=== PATIENT | male | born 2000 | race Two or more races ===

== ENCOUNTER 2022-03-16 08:51 | Emergency (ER) | payer OTHER ==
[~2022-03-16] VITALS: Ht 180.3 cm; Wt 83.0 kg
[2022-03-16 09:13] VITALS: BP 120/88
[2022-03-16] MEDS ORDERED: KETOROLAC TROMETH 60MG/2ML VIAL IM ONE (09:30)
[2022-03-16] MEDS ORDERED: IBUP800T27 PO (11:42)
== END 2022-03-16 11:48 | disposition home or self-care (01) ==
LOC: ER 08:51
DX: M94.0 Chondrocostal junction syndrome [Tietze] (principal); Z20.822 Contact with and (suspected) exposure to COVID-19
CPT/HCPCS: 36415; 71046; 87426; 87804; 96372; 99284; J1885

== ENCOUNTER 2023-04-23 00:31 | Emergency (ER) | payer OTHER ==
[~2023-04-23] VITALS: Ht 180.3 cm; Wt 100.0 kg
[~2023-04-23 00:31] MED LIST: IBUP-1456 PO
[2023-04-23 00:42] VITALS: BP 132/93; PULSE 86; RESP 18; O2SAT 98
== END 2023-04-23 01:22 | disposition left against medical advice (07) ==
LOC: ER 00:31 → EDBD 00:31 → ER 01:22
DX: M54.50 Low back pain, unspecified (principal); Z53.21 Procedure and treatment not carried out due to patient leaving prior to being seen by health care provider; V49.9XXA Car occupant (driver) (passenger) injured in unspecified traffic accident, initial encounter; Y93.89 Activity, other specified; Y92.410 Unspecified street and highway as the place of occurrence of the external cause; Y99.8 Other external cause status